=== PATIENT | male | born 1950 | race Caucasian/White ===

== ENCOUNTER → 2018-04-06 | Outpatient (CLI) | payer MEDICARE, OTHER ==
[~2018-04-06] MED LIST: CYCL10 PO; LOVA40; METF500 PO; Naprosyn375 MG PO; Ultram50 MG PO
== END ==
LOC: LAB 16:34 → LAB SHORT 16:34
DX: Z48.817 Encounter for surgical aftercare following surgery on the skin and subcutaneous tissue (principal); Z48.02 Encounter for removal of sutures; D04.21 Carcinoma in situ of skin of right ear and external auricular canal; L08.9 Local infection of the skin and subcutaneous tissue, unspecified
CPT/HCPCS: 87070; 87205

== ENCOUNTER 2018-06-15 11:44 | Emergency (ER) | payer MEDICARE, OTHER ==
[~2018-06-15] VITALS: Ht 167.6 cm; Wt 72.6 kg
[2018-06-15 12:01] LABS: BASOPHILS ABSOLUTE AUTO 0.06 K/mm3 (0.00-0.23); BASOPHILS PERCENT AUTO 1 % (0-2); EOSINOPHILS ABSOLUTE AUTO 0.18 K/mm3 (0.00-0.68); EOSINOPHILS PERCENT AUTO 2 % (0-6); Hemoglobin 14.5 g/dL (13.5-17.5); IMMATURE GRAN ABSOLUTE AUTO 0.07 K/mm3 (0.00-0.10); IMMATURE GRAN PERCENT AUTO 1 % (0-1); LYMPHOCYTES ABSOLUTE AUTO 1.91 K/mm3 (0.84-5.20); LYMPHOCYTES PERCENT AUTO 20 % (21-46); MONOCYTES ABSOLUTE AUTO 0.48 K/mm3 (0.16-1.47); MONOCYTES PERCENT AUTO 5 % (4-13); Mean Corpuscular Volume 88 fL (80-100); Mean Platelet Volume 10.4 fL (9.1-12.4); NEUTROPHILS ABSOLUTE AUTO 6.76 K/mm3 (1.96-9.15); NEUTROPHILS PERCENT AUTO 72 % (41-73); Platelet Count 267 K/mm3 (150-400); RDW Coefficient Variation 13.5 % (11.7-14.2); RDW Standard Deviation 43.8 fL (35.1-46.3); White Blood Cell Count 9.46 K/mm3 (4.00-11.30)
[2018-06-15 12:16] LABS: International Normalized Ratio 0.92; Prothrombin Time Results 9.5 Sec (9.7-11.5)
[2018-06-15 12:17] LABS: Alanine Aminotransfer (ALT/SGP 24 U/L (12-78); Albumin, Blood 3.6 g/dL (3.4-5.0); Albumin/Globulin Ratio 0.9 (0.8-1.8); Alk Phos 82 U/L (50-136); Anion Gap 7 mmol/L (6-16); Aspartate Aminotrans (AST/SGOT 21 U/L (12-37); Bilirubin, Total 0.5 mg/dL (0.1-1.0); Blood Urea Nitrogen 11 mg/dL (8-24); Bun/Creatinine Ratio 13.2 (12.0-20.0); CO2, Blood 27 mmol/L (21-32); Calcium, Blood 8.4 mg/dL (8.5-10.1); Chloride, Blood 102 mmol/L (98-108); Creatinine, Blood 0.83 mg/dL (0.60-1.20); Glomerular Filtration Rate >60 (60-); Glucose, Blood 375 mg/dL (70-99); Potassium, Blood 4.4 mmol/L (3.5-5.5); Sodium, Blood 136 mmol/L (136-145); Total Protein, Blood 7.6 g/dL (6.4-8.2)
[2018-06-15 12:18] LABS: Ethanol (Alcohol), Blood, Med <3 mg/dL
[2018-06-15 13:45] LABS: PCO2 Arterial 36.5 mmHg (35-45); PO2 Arterial 105 mmHg (80-100); pH Blood Arterial 7.34 (7.35-7.45)
[2018-06-15 14:54] LABS: U Amphetamine Screen Not Detected; U Barbituate Screen Not Detected; U Benzodiazapine Screen Not Detected; U Buprenorphine Screen Not Detected; U Cannabinoids Screen DETECTED; U Cocaine Screen Not Detected; U Methadone Screen Not Detected; U Methamphetamine Screen Not Detected; U Opiates Screen Not Detected; U Oxycodone Screen Not Detected; U Phencyclidine Screen Not Detected; U Propoxyphene Screen Not Detected
== END 2018-06-15 16:35 | disposition short-term general hospital (02) ==
LOC: ER 11:44
PROVIDERS: Emergency Medicine
DX: S22.21XA Fracture of manubrium, initial encounter for closed fracture (principal); G40.901 Epilepsy, unspecified, not intractable, with status epilepticus; I10 Essential (primary) hypertension; I95.9 Hypotension, unspecified; R00.1 Bradycardia, unspecified; V47.5XXA Car driver injured in collision with fixed or stationary object in traffic accident, initial encounter; Z79.84 Long term (current) use of oral hypoglycemic drugs; E11.40 Type 2 diabetes mellitus with diabetic neuropathy, unspecified
CPT/HCPCS: 31500; 31720; 36600; 51702; 70450; 71045; 71260; 72125; 74177; 80053; 82803; 83690; 85025; 85610; 85730; 93005; 93010; 94002; 96374; 96375; 99291-25; 99292; G0480; J0461; J1165; J2060; J2250; J3010; J7030; J7050; Q2009; Q9967

== ENCOUNTER → 2018-06-20 | Outpatient (CLI) | payer MEDICARE, OTHER ==
[~2018-06-20] MED LIST changes: +LEVE500 PO
== END ==
LOC: LAB EV 16:26 → LAB SHORT 16:26
DX: E11.9 Type 2 diabetes mellitus without complications (principal)
CPT/HCPCS: 83036

== ENCOUNTER 2018-06-26 18:07 | Emergency (ER) | payer MEDICARE, OTHER ==
[~2018-06-26] VITALS: Ht 170.2 cm; Wt 70.3 kg
[~2018-06-26 18:07] MED LIST changes: -LEVE500 PO
[2018-06-26 18:46] LABS: BASOPHILS ABSOLUTE AUTO 0.09 K/mm3 (0.00-0.23); BASOPHILS PERCENT AUTO 1 % (0-2); EOSINOPHILS ABSOLUTE AUTO 0.19 K/mm3 (0.00-0.68); EOSINOPHILS PERCENT AUTO 2 % (0-6); Hemoglobin 13.4 g/dL (13.5-17.5); IMMATURE GRAN ABSOLUTE AUTO 0.06 K/mm3 (0.00-0.10); IMMATURE GRAN PERCENT AUTO 1 % (0-1); LYMPHOCYTES ABSOLUTE AUTO 2.11 K/mm3 (0.84-5.20); LYMPHOCYTES PERCENT AUTO 19 % (21-46); MONOCYTES ABSOLUTE AUTO 0.77 K/mm3 (0.16-1.47); MONOCYTES PERCENT AUTO 7 % (4-13); Mean Corpuscular HGB Conc 33.5 g/dL (31.5-36.5); Mean Corpuscular Volume 87 fL (80-100); Mean Platelet Volume 9.9 fL (9.1-12.4); NEUTROPHILS ABSOLUTE AUTO 7.68 K/mm3 (1.96-9.15); NEUTROPHILS PERCENT AUTO 70 % (41-73); Platelet Count 389 K/mm3 (150-400); RDW Coefficient Variation 13.2 % (11.7-14.2); RDW Standard Deviation 41.8 fL (35.1-46.3); Red Blood Cell Count 4.62 M/mm3 (4.30-5.90)
[2018-06-26] MEDS ORDERED: LEVE500 PO (18:49)
[2018-06-26 19:14] LABS: Alanine Aminotransfer (ALT/SGP 24 U/L (12-78); Albumin, Blood 3.6 g/dL (3.4-5.0); Albumin/Globulin Ratio 0.9 (0.8-1.8); Alk Phos 95 U/L (50-136); Anion Gap 6 mmol/L (6-16); Aspartate Aminotrans (AST/SGOT 21 U/L (12-37); Bilirubin, Total 0.3 mg/dL (0.1-1.0); Blood Urea Nitrogen 19 mg/dL (8-24); Bun/Creatinine Ratio 21.8 (12.0-20.0); CO2, Blood 26 mmol/L (21-32); Calcium, Blood 8.5 mg/dL (8.5-10.1); Chloride, Blood 99 mmol/L (98-108); Creatinine, Blood 0.87 mg/dL (0.60-1.20); Globulin, Blood 4.1 g/dL (2.2-4.0); Glomerular Filtration Rate >60 (60-); Glucose, Blood 203 mg/dL (70-99); Potassium, Blood 5.9 mmol/L (3.5-5.5); Sodium, Blood 131 mmol/L (136-145); Total Protein, Blood 7.7 g/dL (6.4-8.2)
[2018-06-26 20:14] LABS: Source, Urine Clean Catch
[2018-06-26 20:17] LABS: Bilirubin, Urine Neg (Neg); Blood, Urine Neg (Neg); Glucose Qualitative, Urine Neg (Neg); Ketones, Urine Neg (Neg); Leukocyte Esterase, Urine Neg (Neg); Nitrite, Urine Neg (Neg); Protein, Urine 2+ (Neg); Urobilinogen, Urine NORM (Normal)
[2018-06-26 20:22] LABS: Appearance, Urine Clear (Clear); Color, Urine Yellow (P-Yellow); Red Blood Cells, Urine 0-2 /hpf (0-2); White Blood Cells, Urine 0-2 /hpf (0-5)
[2018-06-26 20:23] LABS: Bacteria Few /hpf; Squamous Epithelial Cells Rare /hpf (Few)
[2018-06-26 20:27] LABS: U Amphetamine Screen Not Detected; U Barbituate Screen Not Detected; U Benzodiazapine Screen Not Detected; U Buprenorphine Screen Not Detected; U Cannabinoids Screen DETECTED; U Cocaine Screen Not Detected; U Methadone Screen Not Detected; U Methamphetamine Screen Not Detected; U Opiates Screen Not Detected; U Oxycodone Screen Not Detected; U Phencyclidine Screen Not Detected; U Propoxyphene Screen Not Detected
[2018-06-26 20:30] LABS: Chloride (POC) 96 mmol/L (98-108); Creatinine (POC) 0.8 mg/dL (0.8-1.3); Glucose (ISTAT POC) 224 mg/dL (70-99); Hemoglobin (POC) 13.6 g/dL (13.5-17.5); Potassium (POC) 5.3 mmol/L (3.5-5.5); Sodium (POC) 134 mmol/L (135-148); Total CO2 (POC) 27 mmol/L (21-32)
== END 2018-06-26 21:06 | disposition home or self-care (01) ==
LOC: ER 18:07
PROVIDERS: Emergency Medicine
DX: F07.81 Postconcussional syndrome (principal); S22.21XA Fracture of manubrium, initial encounter for closed fracture; G40.901 Epilepsy, unspecified, not intractable, with status epilepticus; Z79.84 Long term (current) use of oral hypoglycemic drugs; E11.40 Type 2 diabetes mellitus with diabetic neuropathy, unspecified; V49.9XXA Car occupant (driver) (passenger) injured in unspecified traffic accident, initial encounter
CPT/HCPCS: 36415; 70450; 71046; 80047; 80053; 81001; 82947; 85014; 85025; 93005; 93010; 96374; 96375; 99285-25; G0480; J1885; J2310; J2405

== ENCOUNTER 2018-08-31 17:47 | Inpatient (IN) | payer MEDICARE, OTHER ==
[~2018-08-31] VITALS: Ht 177.8 cm; Wt 73.5 kg
[~2018-08-31 17:47] MED LIST changes: +LEVE500 PO; -METF500 PO; +METFORMIN HCL500 MG PO
[2018-08-31 18:29] LABS: BASOPHILS ABSOLUTE AUTO 0.06 K/mm3 (0.00-0.23); BASOPHILS PERCENT AUTO 1 % (0-2); EOSINOPHILS ABSOLUTE AUTO 0.01 K/mm3 (0.00-0.68); EOSINOPHILS PERCENT AUTO 0 % (0-6); Hemoglobin 13.8 g/dL (13.5-17.5); IMMATURE GRAN ABSOLUTE AUTO 0.04 K/mm3 (0.00-0.10); IMMATURE GRAN PERCENT AUTO 0 % (0-1); LYMPHOCYTES ABSOLUTE AUTO 1.32 K/mm3 (0.84-5.20); LYMPHOCYTES PERCENT AUTO 11 % (21-46); MONOCYTES PERCENT AUTO 6 % (4-13); Mean Corpuscular HGB Conc 32.9 g/dL (31.5-36.5); Mean Corpuscular Volume 88 fL (80-100); Mean Platelet Volume 10.2 fL (9.1-12.4); NEUTROPHILS ABSOLUTE AUTO 10.41 K/mm3 (1.96-9.15); NEUTROPHILS PERCENT AUTO 83 % (41-73); Platelet Count 281 K/mm3 (150-400); RDW Standard Deviation 45.3 fL (35.1-46.3); Red Blood Cell Count 4.76 M/mm3 (4.30-5.90); White Blood Cell Count 12.54 K/mm3 (4.00-11.30)
[2018-08-31 18:47] LABS: Alanine Aminotransfer (ALT/SGP 13 U/L (12-78); Albumin, Blood 3.3 g/dL (3.4-5.0); Albumin/Globulin Ratio 0.9 (0.8-1.8); Alk Phos 96 U/L (50-136); Anion Gap 8 mmol/L (6-16); Aspartate Aminotrans (AST/SGOT 12 U/L (12-37); Bilirubin, Total 0.4 mg/dL (0.1-1.0); Blood Urea Nitrogen 15 mg/dL (8-24); Bun/Creatinine Ratio 18.2 (12.0-20.0); CO2, Blood 27 mmol/L (21-32); Calcium, Blood 8.7 mg/dL (8.5-10.1); Chloride, Blood 103 mmol/L (98-108); Creatinine, Blood 0.83 mg/dL (0.60-1.20); Globulin, Blood 3.7 g/dL (2.2-4.0); Glomerular Filtration Rate >60 (60-); Glucose, Blood 298 mg/dL (70-99); Potassium, Blood 3.9 mmol/L (3.5-5.5); Sodium, Blood 138 mmol/L (136-145)
[2018-08-31 19:14] LABS: Ethanol (Alcohol), Blood, Med <3 mg/dL; Magnesium, Blood 1.9 mg/dL (1.6-2.4)
[2018-08-31 20:53] LABS: Source, Urine Catheter
[2018-08-31 20:56] LABS: Bilirubin, Urine Neg (Neg); Blood, Urine 3+ (Neg); Glucose Qualitative, Urine 4+ (Neg); Ketones, Urine 2+ (Neg); Leukocyte Esterase, Urine Neg (Neg); Nitrite, Urine Neg (Neg); Protein, Urine 3+ (Neg); Urobilinogen, Urine NORM (Normal)
[2018-08-31 21:02] LABS: Appearance, Urine Clear (Clear); Color, Urine Yellow (P-Yellow)
[2018-08-31 21:05] LABS: Bacteria Not Seen /hpf; Mucus Light (0-Heavy); Squamous Epithelial Cells Rare /hpf (Few); White Blood Cells, Urine Rare /hpf (0-5)
[2018-08-31 21:06] LABS: U Amphetamine Screen Not Detected; U Barbituate Screen Not Detected; U Benzodiazapine Screen DETECTED; U Cocaine Screen Not Detected; U Methadone Screen Not Detected; U Methamphetamine Screen Not Detected; U Opiates Screen Not Detected
[2018-08-31 21:07] LABS: U Buprenorphine Screen Not Detected; U Cannabinoids Screen DETECTED; U Oxycodone Screen Not Detected; U Phencyclidine Screen Not Detected; U Propoxyphene Screen Not Detected
--- NOTE | 2018-09-01 02:23 | NUR ---
ASSUMED PT CARE AT 2200 PT ARRIVED ON UNIT VIA STRETCHER. VERY DROWSY, BUT ABLE TO OPEN EYES SPONTANEOUSLY, AND APPEARED TO BE ALERT AND ORIENTED TO PERSON, PLACE, TIME, SITUATION, WELL WAS FOLLOWING DIRECTIONS. SPEECH CLEAR, BUT GARBLED AT TIMES. UPON TRANSFERRING PT TO BED AND PLACING TELE LEADS AND BLOOD PRESSURE CUFF ON PT, HE BECAME VERY AGITATED AND STARTED PULLING HIS PANTS OFF, THE TELE LEADS OFF, WELL TAKING OFF THE BP CUFF. PT WAS ASKED NOT TO DO THIS SEVERAL TIMES AT WHICH POINT BILATERAL SOFT WRIST RESTRAINTS WERE APPLIED AT 2215; PT EDUCATED TO WHY RESTRAINTS WERE BEING APPLIED AND PT ACKNOWLEDGED/VERBALIZED UNDERSTANDING. PT APPEARED TO STILL BE POST ICTAL PHASE FROM LAST SEIZURE IN ED; VERY DROWSY, HOWEVER, DENIED ANY HEADACHE, VISION CHANGES, WELL NAUSEA/VOMITING. PT STATED HE WAS VERY THIRSTY, BUT UNDERSTOOD WHY HE WASN'T ALLOWED TO HAVE ANYTHING TO DRINK. LUNG SOUNDS WERE CLEAR T/O WITH NORMAL RESPIRATORY EFFORT. HR GOT LOW 46; FIRST DEGREE AV HEART BLOCK NOTED ON ADMIT RHYTHM STRIP. FAMIY AT BEDSIDE BRIEFLY TO ANSWER HEALTH HISTORY QUESTIONS AND SIGN PAPERWORK. PHONE NUMBERS LEFT PRIOR TO FAMILY LEAVING BEDSIDE. PT WAS REMOVED FROM BILATERAL SOFT WRIST RESTRAINTS AT 0100 D/T PT NOT BEING AGITATED AND ABLE TO COMMUNICATE THAT HE WOULD NOT REMOVE MEDICAL EQUIPMENT. CALL LIGHT IN REACH; PT APPEARS COMFORTABLE AT THIS TIME.
[2018-09-01 03:41] LABS: Hematocrit 38.9 % (37.0-53.0); Hemoglobin 12.7 g/dL (13.5-17.5); Mean Corpuscular HGB 28.9 pg (26.0-34.0); Mean Corpuscular HGB Conc 32.6 g/dL (31.5-36.5); Mean Corpuscular Volume 89 fL (80-100); Mean Platelet Volume 9.8 fL (9.1-12.4); Platelet Count 236 K/mm3 (150-400); RDW Standard Deviation 45.3 fL (35.1-46.3); Red Blood Cell Count 4.39 M/mm3 (4.30-5.90); White Blood Cell Count 12.02 K/mm3 (4.00-11.30)
[2018-09-01 04:00] LABS: Alanine Aminotransfer (ALT/SGP 12 U/L (12-78); Albumin/Globulin Ratio 0.9 (0.8-1.8); Alk Phos 84 U/L (50-136); Anion Gap 6 mmol/L (6-16); Aspartate Aminotrans (AST/SGOT 12 U/L (12-37); Bilirubin, Total 0.5 mg/dL (0.1-1.0); Blood Urea Nitrogen 14 mg/dL (8-24); Bun/Creatinine Ratio 16.2 (12.0-20.0); CO2, Blood 27 mmol/L (21-32); Calcium, Blood 8.1 mg/dL (8.5-10.1); Chloride, Blood 106 mmol/L (98-108); Creatinine, Blood 0.87 mg/dL (0.60-1.20); Globulin, Blood 3.3 g/dL (2.2-4.0); Glomerular Filtration Rate >60 (60-); Glucose, Blood 185 mg/dL (70-99); Potassium, Blood 3.7 mmol/L (3.5-5.5); Sodium, Blood 139 mmol/L (136-145); Total Protein, Blood 6.3 g/dL (6.4-8.2)
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
--- NOTE | 2018-09-01 07:30 | NUR ---
ASSUMED CARE OF PATIENT; SEE ASSESSMENT CHARTING FOR DETAILS. PATIENT REMAINS NON-RESPONSIVE TO PAINFUL STIMULI; PROPOFOL DRIP HAS BEEN OFF ALMOST 24 HOURS BUT STILL NO NOTED RESPONSE; PUPILS EQUAL BUT SLUGGISH TO REACT. VENT SETTINGS: A/C 16, TV 350, PEEP 12 AND FIO2 100%. BILAT. WRIST RESTRAINTS REMAIN IN PLACE IN CASE OF SUDDEN RESPONSIVENESS. OGT INFUSING WITH PIVOT 1.5 AT 10ML/HR (GOAL 20ML/HR). RESIDUAL 140ML OF BROWNISH/GRAINGY RETURN WITH SOME GREEN COLORING. RADFORD CATH. DRAINING SCANT, LT. YELLOW URINE. MONITOR SHOWS ATRIAL FIB WITH RATE 1-TEENS TO 120'S; BP STABLE AND AFEBRILE. SCD'S IN PLACE TO RLE. LLE ELEVATED ON PILLOW; SOFT SPLINT TO CALF (TIB/FIB FX.). 1 AMP NAHCO3 GIVEN IVP BY NOC NURSE JUST PRIOR TO TRANSFER OF CARE; THIS RN STARTED CONT. INFUSION OF NA HCO3 AT 7ML/HR. RN ANAHY SPECIMEN, FOR ABG, FROM ART LINE WITHOUT DIFFICULTY; GOOD WAVE FORM AND ZERO BALANCES EASILY. CENTRAL LINE TO RIJ; DRESSING D/I.
--- NOTE | 2018-09-01 07:30 | NUR ---
ASSUMED CARE OF PATIENT; SEE ASSESSMENT CHARTING FOR DETAILS. PATIENT SLEEPING BUT AROUSES TO VERBAL STIMULI; DRIFTS OFF TO SLEEP WHEN NOT DISTURBED. ORIENTED TO PLACE, SELF, SITUATION, YEAR AND MONTH. LUNGS CLEAR; OXYGEN AT 2L/MIN VIA NC; BIOX MID 90'S TO HIGH 90'S; PATIENT SNORES AND BIOX DROPS IF O2 OFF. IVF OF NS INFUSING AT 75ML/HR. PATIENT THIRSTY BUT CURRENTLY NPO STATUS; MOUTH SWABBED. FAMILY IN/OUT VERY SUPPORTIVE. SEIZURE PADS ON SIDE RAILS; FOLLOWING SEIZURE PRECAUTIONS; NO S/SX OF SEIZURE ACTIVITY AT THIS TIME.
--- NOTE | 2018-09-01 07:45 | NUR ---
DR. ORTEGA HERE; SEE ORDERS. PATIENT MAY HAVE ADA ETTA.
--- NOTE | 2018-09-01 09:30 | NUR ---
BREAKFAST AT BEDSIDE; APPETITE POOR BUT SWALLOWING OKAY; TAKE SIPS OF WATER; NO GI UPSET. VOIDING ABOUT 125ML IN URINAL; URINE RAJI IN COLOR.
--- NOTE | 2018-09-01 12:00 | NUR ---
CBG READING 162; NO INSULIN COVERAGE INDICATED. REFUSED LUNCH; WANTING TO RETURN TO SLEEP; REPOSITIONS SELF IN BED.
--- NOTE | 2018-09-01 17:30 | NUR ---
TC TO HOSPITALIST (DR. ORTEGA); RECEIVED ORDER TO CHANGE PATIENT TO MED. FLOOR STATUS WITHOUT TELEMETRY. IVFS' TO CONTINUE ORDERED.
--- NOTE | 2018-09-01 18:30 | NUR ---
PATIENT TO TRANSFER TO MEDICAL FLOOR, ROOM 324; RN WILL CALL REPORT TO [employer]. FLOOR NURSE AND ICU NIGHTSHIFT WILL TRANSFER PATIENT.
--- NOTE | 2018-09-01 19:05 | NUR ---
REPORT TO YARA HAWLEY; PATIENT TO TRANSFER TO [facility] FLOOR ROOM 324.
--- NOTE | 2018-09-01 19:21 | NUR ---
TRANSFERRED TO MEDICAL FLOOR, ROOM 324, VIA BED; ACCOMPANIED BY SENIOR PRODUCT DEVELOPMENT MANAGER. BELONGINGS, MEDS AND CHART WITH PATIENT; EEG ORDERED BUT NO SPECIFICS GIVEN ON DATE, ETC FROM HAND THERAPIST.
--- NOTE | 2018-09-01 19:30 | NUR ---
Transfer from ICU. Pt transferred from ICU. Pt settled in room 324 and assessment completed. Seizure precautions put on bed. Pt states he has not had any seizures since he came to icu. No c/o discomfort. See nursing assessment. VSS.
--- NOTE | 2018-09-02 03:30 | NUR ---
sHIFT SUMMARY: pT SLEPT WELL DURING THE NIGHT. No c/o discomfort and no seizures noted. VSS. blood sugar last pm was 129- no coverage needed. pt alert, oriented and appropriate.
[2018-09-02] MEDS ORDERED: LISI5 PO (10:50)
[2018-09-02] MEDS ORDERED: LEVE500 PO (10:50)
--- NOTE | 2018-09-02 13:01 | NUR ---
PT WAS DISCHARGED AT 12:30. HE WAS TRANSPORTED HOME BY HIS ROOMMATE BY CAR.
== END 2018-09-02 12:31 | disposition home or self-care (01) | DRG 101 ==
LOC: ER 17:47 → ICUW 20:41 → MEDS 09-01 19:20 → ENPENDDIS 09-02 10:00 → MEDS 09-02 12:31
PROVIDERS: Emergency Medicine; Nurse Practitioner Acute Care; ADMIT Hospitalist
DX: G40.909 Epilepsy, unspecified, not intractable, without status epilepticus (principal); E11.65 Type 2 diabetes mellitus with hyperglycemia; R00.1 Bradycardia, unspecified; Z91.14 Patient's other noncompliance with medication regimen
CPT/HCPCS: 36415; 70450; 71045; 80053; 81001; 82140; 82947; 83605; 83735; 84146; 84484; 85025; 85027; 96365; 96375; 96376; 99285-25; G0480; J1953; J2060; J2405; J7030

== ENCOUNTER 2018-11-19 19:08 | Emergency (ER) | payer MEDICARE, OTHER ==
[~2018-11-19] VITALS: Ht 170.2 cm; Wt 72.6 kg
[~2018-11-19 19:08] MED LIST changes: +LISI5 PO
[2018-11-19 20:06] LABS: BASOPHILS ABSOLUTE AUTO 0.07 K/mm3 (0.00-0.23); BASOPHILS PERCENT AUTO 1 % (0-2); EOSINOPHILS ABSOLUTE AUTO 0.32 K/mm3 (0.00-0.68); EOSINOPHILS PERCENT AUTO 3 % (0-6); Hematocrit 41.7 % (37.0-53.0); Hemoglobin 13.9 g/dL (13.5-17.5); IMMATURE GRAN ABSOLUTE AUTO 0.04 K/mm3 (0.00-0.10); IMMATURE GRAN PERCENT AUTO 0 % (0-1); LYMPHOCYTES ABSOLUTE AUTO 1.92 K/mm3 (0.84-5.20); LYMPHOCYTES PERCENT AUTO 18 % (21-46); MONOCYTES ABSOLUTE AUTO 1.02 K/mm3 (0.16-1.47); MONOCYTES PERCENT AUTO 10 % (4-13); Mean Corpuscular HGB 28.9 pg (26.0-34.0); Mean Corpuscular HGB Conc 33.3 g/dL (31.5-36.5); Mean Corpuscular Volume 87 fL (80-100); Mean Platelet Volume 9.8 fL (9.1-12.4); NEUTROPHILS ABSOLUTE AUTO 7.27 K/mm3 (1.96-9.15); NEUTROPHILS PERCENT AUTO 68 % (41-73); Platelet Count 290 K/mm3 (150-400); RDW Coefficient Variation 13.6 % (11.7-14.2); RDW Standard Deviation 43.2 fL (35.1-46.3); Red Blood Cell Count 4.81 M/mm3 (4.30-5.90); White Blood Cell Count 10.64 K/mm3 (4.00-11.30)
[2018-11-19] MEDS ORDERED: CEPH500 PO (21:05)
[2018-11-19] MEDS ORDERED: Bactrim Ds Tab1 EACH PO (21:06)
== END 2018-11-19 21:30 | disposition home or self-care (01) ==
LOC: ER 19:08
PROVIDERS: Physician Assistant
DX: L03.031 Cellulitis of right toe (principal); L03.115 Cellulitis of right lower limb; E11.40 Type 2 diabetes mellitus with diabetic neuropathy, unspecified; M79.604 Pain in right leg
CPT/HCPCS: 36415; 85025; 93971; 99283-25

== ENCOUNTER 2019-02-15 13:38 | Observation (INO) | payer MEDICARE, OTHER ==
[~2019-02-15] VITALS: Ht 170.2 cm; Wt 70.3 kg
[~2019-02-15 13:38] MED LIST changes: +Bactrim Ds Tab1 EACH PO; +CEPH500 PO
[2019-02-15 13:50] LABS: Calcium, Ionized (POC) 1.18 mmol/L (1.10-1.46); Chloride (POC) 101 mmol/L (98-108); Creatinine (POC) 1.1 mg/dL (0.8-1.3); Glucose (ISTAT POC) 243 mg/dL (70-99); Hemoglobin (POC) 13.9 g/dL (13.5-17.5); Potassium (POC) 4.2 mmol/L (3.5-5.5); Sodium (POC) 136 mmol/L (135-148); Total CO2 (POC) 24 mmol/L (21-32)
[2019-02-15 13:52] LABS: BASOPHILS ABSOLUTE AUTO 0.07 K/mm3 (0.00-0.23); BASOPHILS PERCENT AUTO 1 % (0-2); EOSINOPHILS ABSOLUTE AUTO 0.28 K/mm3 (0.00-0.68); EOSINOPHILS PERCENT AUTO 3 % (0-6); Hematocrit 40.8 % (37.0-53.0); Hemoglobin 13.9 g/dL (13.5-17.5); IMMATURE GRAN ABSOLUTE AUTO 0.02 K/mm3 (0.00-0.10); IMMATURE GRAN PERCENT AUTO 0 % (0-1); LYMPHOCYTES ABSOLUTE AUTO 3.02 K/mm3 (0.84-5.20); LYMPHOCYTES PERCENT AUTO 36 % (21-46); MONOCYTES ABSOLUTE AUTO 0.66 K/mm3 (0.16-1.47); MONOCYTES PERCENT AUTO 8 % (4-13); Mean Corpuscular HGB 28.5 pg (26.0-34.0); Mean Corpuscular HGB Conc 34.1 g/dL (31.5-36.5); Mean Corpuscular Volume 84 fL (80-100); Mean Platelet Volume 9.7 fL (9.1-12.4); NEUTROPHILS ABSOLUTE AUTO 4.34 K/mm3 (1.96-9.15); NEUTROPHILS PERCENT AUTO 52 % (41-73); Platelet Count 289 K/mm3 (150-400); RDW Coefficient Variation 13.7 % (11.7-14.2); RDW Standard Deviation 42.1 fL (35.1-46.3); Red Blood Cell Count 4.87 M/mm3 (4.30-5.90); White Blood Cell Count 8.39 K/mm3 (4.00-11.30)
[2019-02-15 14:10] LABS: International Normalized Ratio 0.88; Prothrombin Time Results 9.4 Sec (9.7-11.5)
[2019-02-15 14:38] LABS: Alanine Aminotransfer (ALT/SGP 13 U/L (12-78); Albumin, Blood 3.6 g/dL (3.4-5.0); Albumin/Globulin Ratio 0.9 (0.8-1.8); Alk Phos 84 U/L (50-136); Anion Gap 6 mmol/L (6-16); Aspartate Aminotrans (AST/SGOT 17 U/L (12-37); Bilirubin, Total 0.4 mg/dL (0.1-1.0); Blood Urea Nitrogen 17 mg/dL (8-24); Bun/Creatinine Ratio 17.5 (12.0-20.0); CO2, Blood 25 mmol/L (21-32); Calcium, Blood 9.1 mg/dL (8.5-10.1); Chloride, Blood 103 mmol/L (98-108); Creatinine, Blood 0.97 mg/dL (0.60-1.20); Globulin, Blood 3.8 g/dL (2.2-4.0); Glomerular Filtration Rate >60 (60-); Glucose, Blood 242 mg/dL (70-99); Potassium, Blood 4.2 mmol/L (3.5-5.5); Sodium, Blood 134 mmol/L (136-145); Total Protein, Blood 7.4 g/dL (6.4-8.2)
[2019-02-15 14:54] LABS: Source, Urine Clean Catch
[2019-02-15 14:56] LABS: Bilirubin, Urine Neg (Neg); Blood, Urine 1+ (Neg); Glucose Qualitative, Urine 2+ (Neg); Ketones, Urine Neg (Neg); Leukocyte Esterase, Urine Neg (Neg); Nitrite, Urine Neg (Neg); Protein, Urine 1+ (Neg); Urobilinogen, Urine NORM (Normal)
[2019-02-15 15:03] LABS: Appearance, Urine Clear (Clear); Color, Urine Yellow (P-Yellow)
[2019-02-15 15:04] LABS: Bacteria Few /hpf; Squamous Epithelial Cells Not Seen /hpf (Few); White Blood Cells, Urine 0-2 /hpf (0-5)
[2019-02-15 15:24] LABS: U Amphetamine Screen Not Detected; U Barbituate Screen Not Detected; U Benzodiazapine Screen Not Detected; U Buprenorphine Screen Not Detected; U Cannabinoids Screen DETECTED; U Cocaine Screen Not Detected; U Methadone Screen Not Detected; U Methamphetamine Screen Not Detected; U Opiates Screen Not Detected; U Oxycodone Screen Not Detected; U Phencyclidine Screen Not Detected; U Propoxyphene Screen Not Detected
[2019-02-15] MEDS ORDERED: LEVE500 PO (16:19)
[2019-02-15] MEDS ORDERED: METF500C PO (16:19)
--- NOTE | 2019-02-15 18:50 | NUR ---
ADMIT TO UNIT PT ARRIVED TO UNIT AT APPROX 1814, TRANSFERED TO UNIT BED WITH MINIMAL ASSIST STAND AND PIVOT. GAIT ON TRANSFER APPEARED GOOD. PT STATES NO PAIN AT THIS TIME. RESTING IN BED WITH LIGHTS OFF. USED URINAL ONCE IN BED. ABRASION TO RIGHT FOREHEAD, RIGHT ELBOW X2. PATIENT IS ALERT AND ORIENTED, ABLE TO TELL TIME, DATE, LOCATION, AND SELF, UNABLE TO STATE WHAT HAPPENED. "DOES NOT REMEMBER". EYES WERE EQUAL AND RESPONSIVE. PATIENT DENIES NAUSEA AND VOMITTING AT THIS TIME. WILL CONTINUE TO MONITOR AND HAND OFF TO ONCOMING SHIFT.
[2019-02-16 05:33] LABS: BASOPHILS ABSOLUTE AUTO 0.06 K/mm3 (0.00-0.23); BASOPHILS PERCENT AUTO 0 % (0-2); EOSINOPHILS ABSOLUTE AUTO 0.17 K/mm3 (0.00-0.68); EOSINOPHILS PERCENT AUTO 1 % (0-6); Hematocrit 42.5 % (37.0-53.0); Hemoglobin 14.4 g/dL (13.5-17.5); IMMATURE GRAN ABSOLUTE AUTO 0.06 K/mm3 (0.00-0.10); IMMATURE GRAN PERCENT AUTO 0 % (0-1); LYMPHOCYTES ABSOLUTE AUTO 1.93 K/mm3 (0.84-5.20); LYMPHOCYTES PERCENT AUTO 14 % (21-46); MONOCYTES ABSOLUTE AUTO 1.05 K/mm3 (0.16-1.47); MONOCYTES PERCENT AUTO 8 % (4-13); Mean Corpuscular HGB 28.3 pg (26.0-34.0); Mean Corpuscular HGB Conc 33.9 g/dL (31.5-36.5); Mean Corpuscular Volume 84 fL (80-100); Mean Platelet Volume 10.2 fL (9.1-12.4); NEUTROPHILS ABSOLUTE AUTO 10.73 K/mm3 (1.96-9.15); NEUTROPHILS PERCENT AUTO 77 % (41-73); Platelet Count 286 K/mm3 (150-400); RDW Coefficient Variation 13.7 % (11.7-14.2); RDW Standard Deviation 41.9 fL (35.1-46.3); Red Blood Cell Count 5.08 M/mm3 (4.30-5.90)
--- NOTE | 2019-02-16 05:40 | NUR ---
LYING IN SEMI FOWLERS WITH EYES OPEN WHILE WATCHING TV. STATES THAT HE HAS NOT SLEPT WELL AND HAS BEEN UP AND DWN ALL NIGHT GOING TO THE BATHROOM. WHEN ASKED IF THIS IS NORMAL, HE STATES THAT IT IS. NO CONFUSION NOTED THROUGHOUT SHIFT. DENIES NEED FOR PAIN MEDS AT THIS TIME, STATES THAT PAIN IS MANAGED WITH REST. VERBALIZES UNDERSTANDING TO CALL IF NEED FOR PAIN MEDS ARISE. DENEIS FURTHER NEEDS AT THIS TIME. SAFETY MEASURES IN PLACE. WILL CONTINUE TO MONITOR.
[2019-02-16 05:55] LABS: Alanine Aminotransfer (ALT/SGP 12 U/L (12-78); Albumin, Blood 3.5 g/dL (3.4-5.0); Albumin/Globulin Ratio 0.9 (0.8-1.8); Alk Phos 86 U/L (50-136); Anion Gap 8 mmol/L (6-16); Aspartate Aminotrans (AST/SGOT 12 U/L (12-37); Bilirubin, Total 0.7 mg/dL (0.1-1.0); Blood Urea Nitrogen 13 mg/dL (8-24); Bun/Creatinine Ratio 13.3 (12.0-20.0); CO2, Blood 25 mmol/L (21-32); Calcium, Blood 8.8 mg/dL (8.5-10.1); Chloride, Blood 104 mmol/L (98-108); Creatinine, Blood 0.98 mg/dL (0.60-1.20); Globulin, Blood 3.8 g/dL (2.2-4.0); Glomerular Filtration Rate >60 (60-); Glucose, Blood 204 mg/dL (70-99); Potassium, Blood 4.1 mmol/L (3.5-5.5); Sodium, Blood 137 mmol/L (136-145); Total Protein, Blood 7.3 g/dL (6.4-8.2)
--- NOTE | 2019-02-16 11:21 | NUR ---
DR. SMITH IN TO SEE PT AT APPROX 9651
--- NOTE | 2019-02-16 12:24 | NUR ---
DISCHARGE SUMMARY PT DISCHARGED HOME WITH FRIEND AT 1200 TODAY BY INDEPENDENT AMBULATION- REFUSED WHEELCHAIR. DISCHARGE TEACHING AND PERSONAL BELONGINGS GIVEN TO PT. REFUSED CBG AND INSULIN CONVERAGE PRIOR TO D/C. IV D/C WITH CATH INTACT.
== END 2019-02-16 12:10 | disposition home or self-care (01) ==
LOC: ER 13:38 → SURS 13:39
PROVIDERS: Emergency Medicine; Internal Medicine; ADMIT Surgery
DX: S06.0X1A Concussion with loss of consciousness of 30 minutes or less, initial encounter (principal); M25.519 Pain in unspecified shoulder; Z23 Encounter for immunization; G40.909 Epilepsy, unspecified, not intractable, without status epilepticus; E11.9 Type 2 diabetes mellitus without complications; Z79.899 Other long term (current) drug therapy; Z79.84 Long term (current) use of oral hypoglycemic drugs; V23.4XXA Motorcycle driver injured in collision with car, pick-up truck or van in traffic accident, initial encounter
CPT/HCPCS: 12011; 36415; 70450; 71045; 71260; 72125; 72170; 74177; 80047; 80053; 81001; 82947; 83605; 83690; 85014; 85025; 85610; 85730; 86850; 86900; 86901; 90471; 90714; 96365-59; 96375-59; 99285-25; A9270; G0378; G0480; J1815; J1953; J2405; J3010; Q9967

== ENCOUNTER 2019-06-05 13:40 | Emergency (ER) | payer OTHER, MEDICARE ==
[~2019-06-05] VITALS: Ht 170.2 cm; Wt 74.8 kg
[~2019-06-05 13:40] MED LIST changes: +METF500C PO
[2019-06-05] MEDS ORDERED: LEVE500 PO (15:01)
== END 2019-06-05 15:13 | disposition home or self-care (01) ==
LOC: ER 13:40
DX: S09.90XA Unspecified injury of head, initial encounter (principal); E11.40 Type 2 diabetes mellitus with diabetic neuropathy, unspecified; G40.909 Epilepsy, unspecified, not intractable, without status epilepticus; Z79.899 Other long term (current) drug therapy; V29.49XA Motorcycle driver injured in collision with other motor vehicles in traffic accident, initial encounter
CPT/HCPCS: 70450; 82947; 99284-25

== ENCOUNTER 2020-07-22 11:39 | Inpatient (IN) | payer MEDICARE, OTHER ==
[~2020-07-22] VITALS: Ht 172.7 cm; Wt 75.1 kg
[2020-07-22 12:10] LABS: Calcium, Ionized (POC) 1.09 mmol/L (1.10-1.46); Chloride (POC) 106 mmol/L (98-108); Creatinine (POC) 1.2 mg/dL (0.8-1.3); Glucose (ISTAT POC) 278 mg/dL (70-99); Potassium (POC) 3.7 mmol/L (3.5-5.5); Sodium (POC) 139 mmol/L (135-148); Total CO2 (POC) 21 mmol/L (21-32)
[2020-07-22 12:13] LABS: BASOPHILS ABSOLUTE AUTO 0.11 K/mm3 (0.00-0.23); BASOPHILS PERCENT AUTO 1 % (0-2); EOSINOPHILS ABSOLUTE AUTO 0.34 K/mm3 (0.00-0.68); EOSINOPHILS PERCENT AUTO 2 % (0-6); Hematocrit 47.3 % (37.0-53.0); Hemoglobin 15.3 g/dL (13.5-17.5); IMMATURE GRAN ABSOLUTE AUTO 0.09 K/mm3 (0.00-0.10); IMMATURE GRAN PERCENT AUTO 1 % (0-1); LYMPHOCYTES ABSOLUTE AUTO 6.12 K/mm3 (0.84-5.20); LYMPHOCYTES PERCENT AUTO 41 % (21-46); MONOCYTES ABSOLUTE AUTO 0.81 K/mm3 (0.16-1.47); MONOCYTES PERCENT AUTO 5 % (4-13); Mean Corpuscular HGB 28.4 pg (26.0-34.0); Mean Corpuscular HGB Conc 32.3 g/dL (31.5-36.5); Mean Corpuscular Volume 88 fL (80-100); Mean Platelet Volume 10.1 fL (9.1-12.4); NEUTROPHILS ABSOLUTE AUTO 7.56 K/mm3 (1.96-9.15); NEUTROPHILS PERCENT AUTO 50 % (41-73); Platelet Count 302 K/mm3 (150-400); RDW Coefficient Variation 13.8 % (11.7-14.2); RDW Standard Deviation 44.3 fL (35.1-46.3); Red Blood Cell Count 5.38 M/mm3 (4.30-5.90); White Blood Cell Count 15.03 K/mm3 (4.00-11.30)
[2020-07-22 12:27] LABS: Alanine Aminotransfer (ALT/SGP 47 U/L (12-78); Albumin, Blood 3.3 g/dL (3.4-5.0); Albumin/Globulin Ratio 0.9 (0.8-1.8); Alk Phos 112 U/L (50-136); Anion Gap 14 mmol/L (6-16); Aspartate Aminotrans (AST/SGOT 62 U/L (12-37); Bilirubin, Total 0.4 mg/dL (0.1-1.0); Blood Urea Nitrogen 20 mg/dL (8-24); Bun/Creatinine Ratio 18.2 (12.0-20.0); CO2, Blood 18 mmol/L (21-32); CPK Creatine Kinase 96 U/L (39-308); Calcium, Blood 8.4 mg/dL (8.5-10.1); Chloride, Blood 107 mmol/L (98-108); Creatine Kinase MB 3.7 ng/mL (0.0-3.6); Creatine Kinase MB Index 3.9 (0.0-4.0); D-Dimer, Quantitative 5.68 mg/L FEU (0.00-0.52); Globulin, Blood 3.7 g/dL (2.2-4.0); Glomerular Filtration Rate >60 (60-); Glucose, Blood 268 mg/dL (70-99); International Normalized Ratio 0.9; Potassium, Blood 3.7 mmol/L (3.5-5.5); Prothrombin Time Results 9.7 Sec (9.7-11.5); Sodium, Blood 139 mmol/L (136-145); Troponin I 0.267 ng/mL (0.000-0.040)
[2020-07-22] MEDS ORDERED: LISI5 PO (12:40)
[2020-07-22] MEDS ORDERED: GLIP2.5ER PO (12:41)
[2020-07-22 14:04] LABS: BASOPHILS ABSOLUTE AUTO 0.11 K/mm3 (0.00-0.23); BASOPHILS PERCENT AUTO 1 % (0-2); EOSINOPHILS ABSOLUTE AUTO 0.17 K/mm3 (0.00-0.68); EOSINOPHILS PERCENT AUTO 1 % (0-6); Hematocrit 38.9 % (37.0-53.0); Hemoglobin 12.7 g/dL (13.5-17.5); IMMATURE GRAN ABSOLUTE AUTO 0.39 K/mm3 (0.00-0.10); IMMATURE GRAN PERCENT AUTO 2 % (0-1); LYMPHOCYTES ABSOLUTE AUTO 3.53 K/mm3 (0.84-5.20); LYMPHOCYTES PERCENT AUTO 15 % (21-46); MONOCYTES ABSOLUTE AUTO 1.22 K/mm3 (0.16-1.47); MONOCYTES PERCENT AUTO 5 % (4-13); Mean Corpuscular HGB Conc 32.6 g/dL (31.5-36.5); Mean Corpuscular Volume 89 fL (80-100); Mean Platelet Volume 9.9 fL (9.1-12.4); NEUTROPHILS ABSOLUTE AUTO 17.86 K/mm3 (1.96-9.15); NEUTROPHILS PERCENT AUTO 77 % (41-73); Platelet Count 283 K/mm3 (150-400); RDW Coefficient Variation 13.8 % (11.7-14.2); Red Blood Cell Count 4.38 M/mm3 (4.30-5.90); White Blood Cell Count 23.28 K/mm3 (4.00-11.30)
[2020-07-22 14:18] LABS: International Normalized Ratio 1.07; Prothrombin Time Results 11.4 Sec (9.7-11.5)
[2020-07-22 14:39] LABS: Influenza A, PCR NEGATIVE (NEGATIVE); Influenza B, PCR NEGATIVE (NEGATIVE); Resp Syncytial Virus, PCR NEGATIVE (NEGATIVE); SARS-Cov-2 (COVID-19) PCR, MMC NEGATIVE (NEGATIVE)
[2020-07-22 14:46] LABS: Blood Urea Nitrogen 20 mg/dL (8-24); Bun/Creatinine Ratio 17.4 (12.0-20.0); CO2, Blood 15 mmol/L (21-32); Calcium, Blood 6.6 mg/dL (8.5-10.1); Chloride, Blood 101 mmol/L (98-108); Creatinine, Blood 1.15 mg/dL (0.60-1.20); Glomerular Filtration Rate >60 (60-); Glucose, Blood 576 mg/dL (70-99); Potassium, Blood 3.4 mmol/L (3.5-5.5)
[2020-07-22 14:47] LABS: Anion Gap 13 mmol/L (6-16)
[2020-07-22 14:48] LABS: Sodium, Blood 129 mmol/L (136-145)
[2020-07-22 15:09] LABS: PCO2 Arterial 32.5 mmHg (35-45); PO2 Arterial 184 mmHg (80-100); pH Blood Arterial 7.16 (7.35-7.45)
--- NOTE | 2020-07-22 15:43 | NUR ---
I was called to ER to assist family when patient arrived to ER via ambulance. I provided a calming presence to family after Dr. Donovan explained the gravity of the situation. I walked family to heart center and got them set up in the waiting rm including providing beverages. I conduct a life review of patient and normalize their experience. I wait with family in the ICU waiting rm. Family remain optimistic but understand how critic the patient is. I will continue to remain available to patient and family.
--- NOTE | 2020-07-22 16:30 | NUR ---
DR MCCORMICK / UPDATE: PROVIDER CALLED TO BEDSIDE BY THIS RN FOR PT's WORSENING BRADYCARDIA W/ HR DOWN TO 32 BPM. AMIO HAS BEEN PLACED ON STANDBY & BEDSIDE ZOLL IN USE W/ "MONITOR" SETTING. DR MCCORMICK HAS CALLED DR CISNEROS WHO IS AGREEABLE TO STOPPING AMIODARONE FOR THIS PT & WILL COME TO BEDSIDE SHORTLY. EKG COMPLETED ORDERED POST-OPERATIVELY.
--- NOTE | 2020-07-22 17:07 | NUR ---
FAMILY PHONE NUMBERS: JESUSITA (DAUGHTER) - AIRAM (DAUGHTER) -
--- NOTE | 2020-07-22 19:00 | NUR ---
ASSUMED CARE ASSUMED CARE OF PATIENT. REMAINS INTUBATED- AC 14, TV 450, PEEP 5, FIO2 30%. RR 20s. NIMBEX GTT AT 0.5MCG/KG/MIN. T04 0/4. SEDATED WITH PROPOFOL AT 20MCG/KG/MIN. BIS 26-35. NO SPONTANEOUS MOVEMENT NOTED. OG TO LIS WITH DARK BROWN DRAINAGE. RADFORD PATENT AND DRAINING CLEAR YELLOW URINE. RIGHT FEMORAL ARTERIAL LINE NOTED. RIGHT FEMORAL COOLING CATHETER/CENTRAL LINE NOTED. COOLING PER PROTOCOL WITH TEMP NOW 96.8F. SEE SHIFT ASSESSMENT FOR FULL ASSESSMENT.
--- NOTE | 2020-07-22 19:42 | NUR ---
ADMISSION / SHIFT SUMMARY: BEDSIDE REPORT RECIEVED FROM BRODY Cummins RN IN HC. PT ARRIVED TO ICU04 AT APPROX 1430. ON ARRIVAL HE IS INTUBATED W/ 8.0 ETT NOTED TO BE 22.0 CM ATG. VENT SETTINGS: AC 14/450/5/70%. OGT IN PLACE, ATTACHED TO LIS W/ SMALL AMNT GASTRIC CONTENTS NOTED IN CANISTER. NEW ZOLL PACER/DEFIB PADS HAVE BEEN PLACED ON THIS PT. EPI DRIP INFUSING AT 10 MCG/MIN & AMIODARONE INFUSING AT 1 MG/MIN. EPI DRIP HAS BEEN QUICKLY TITRATED OFF R/T INCREASING BP & AMIODARONE OFF FOR BRADYCARDIA - SEE PRIOR NOTE. NIMBEX INFUSING PER EMAR, 0/4 FOR TRAIN OF 4 NOTED & PARALYTIC HAS INCREASINGLY BEEN TITRATED DOWN R/T THIS. SEDATION ALSO TITRATED DOWN R/T LOW BIS SCORE W/ IMPROVEMENT NOTED W/ BIS INCREASING FROM 10 TO APPROX 30 THIS EVENING. VENT SETTINGS: AC 14/450/5/45%. MONITOR SHOWS SB-SR W/ HR 50-60s, FREQUENT PVCs, SLIGHT HTN W/ SBP 160s. OGT REMAINS TO LIS. TEMP RADFORD PATENT/ DRAINING W/ READING NOTED ON ZOLL COOLING DEVICE. COOLING CATH & ART LINE IN PLACE TO R FEMORAL. SKIN OVERALL CDI. REPORT HAS BEEN GIVEN NAVA Justice RN TO ASSUME CARE.
[2020-07-22 20:33] LABS: PCO2 Arterial 31.9 mmHg (35-45); PO2 Arterial 93.6 mmHg (80-100); pH Blood Arterial 7.31 (7.35-7.45)
[2020-07-23 02:02] LABS: BASOPHILS ABSOLUTE AUTO 0.05 K/mm3 (0.00-0.23); BASOPHILS PERCENT AUTO 0 % (0-2); EOSINOPHILS ABSOLUTE AUTO 0.01 K/mm3 (0.00-0.68); EOSINOPHILS PERCENT AUTO 0 % (0-6); Hematocrit 37.7 % (37.0-53.0); Hemoglobin 12.7 g/dL (13.5-17.5); IMMATURE GRAN ABSOLUTE AUTO 0.07 K/mm3 (0.00-0.10); IMMATURE GRAN PERCENT AUTO 0 % (0-1); LYMPHOCYTES ABSOLUTE AUTO 1.43 K/mm3 (0.84-5.20); LYMPHOCYTES PERCENT AUTO 8 % (21-46); MONOCYTES ABSOLUTE AUTO 1.51 K/mm3 (0.16-1.47); MONOCYTES PERCENT AUTO 9 % (4-13); Mean Corpuscular HGB 28.5 pg (26.0-34.0); Mean Corpuscular HGB Conc 33.7 g/dL (31.5-36.5); Mean Corpuscular Volume 85 fL (80-100); Mean Platelet Volume 9.7 fL (9.1-12.4); NEUTROPHILS ABSOLUTE AUTO 13.87 K/mm3 (1.96-9.15); NEUTROPHILS PERCENT AUTO 82 % (41-73); Platelet Count 323 K/mm3 (150-400); RDW Coefficient Variation 13.7 % (11.7-14.2); RDW Standard Deviation 42.5 fL (35.1-46.3); Red Blood Cell Count 4.46 M/mm3 (4.30-5.90); White Blood Cell Count 16.94 K/mm3 (4.00-11.30)
[2020-07-23 02:21] LABS: International Normalized Ratio 0.94; Prothrombin Time Results 10.1 Sec (9.7-11.5)
[2020-07-23 02:23] LABS: CHOL/HDL RATIO 3.6; Cholesterol 137 mg/dL (50-200); HDL Cholesterol 38 mg/dL (>39); LDL/HDL RATIO 1.7; Low Density Lipoprotein Chol 65 mg/dL (0-110); Triglycerides 172 mg/dL (30-160); Very Low Density Lipoprot Chol 34 mg/dL (6-32)
[2020-07-23 02:36] LABS: Anion Gap 9 mmol/L (6-16); Blood Urea Nitrogen 25 mg/dL (8-24); Bun/Creatinine Ratio 22.1 (12.0-20.0); CO2, Blood 16 mmol/L (21-32); Calcium, Blood 7.5 mg/dL (8.5-10.1); Chloride, Blood 109 mmol/L (98-108); Creatinine, Blood 1.13 mg/dL (0.60-1.20); Glomerular Filtration Rate >60 (60-); Glucose, Blood 242 mg/dL (70-99); Potassium, Blood 4.9 mmol/L (3.5-5.5); Sodium, Blood 134 mmol/L (136-145)
[2020-07-23 05:18] LABS: PCO2 Arterial 29.8 mmHg (35-45); PO2 Arterial 116 mmHg (80-100); pH Blood Arterial 7.34 (7.35-7.45)
--- NOTE | 2020-07-23 06:05 | NUR ---
SHIFT SUMMARY NO ACUTE CHANGES. REMAINS INTUBATED- AC 14, TV 450, PEEP 5, FIO2 30%. RR 14-LOW 20s T/O NOC. NIMBEX CONTINUES AT 0.5MCG/KG/MIN- TO4 3/4 THIS AM. SEDATED WITH PROPOFOL BETWEEN 20-35MCG/KF/MIN DURING NOC- NOW INFUSING AT 30MCG/KG/MIN. BIS MONITOR CONTINUES BETWEEN 30s-50s MOSTLY. NO SPONTANENOUS MOVEMENT NOTED. NO COUGH OR GAG NOTED. PUPILS 1-2MM, NO REACTION NOTED. OG TO LIS. BLOODY ORAL SECRETIONS CONTINUE. RADFORD PATENT AND DRAINING CLEAR YELLOW URINE. TEMP 96.8-96.9F T/O NOC WITH COOLING CATHETER. RIGHT FEMORAL ARTERIAL LINE AND CENTRAL LINE INTACT, DRSG D/I. WILL REPORT TO ONCOMING RN WHEN AVAILABLE.
--- NOTE | 2020-07-23 08:00 | NUR ---
PT REMAINS INTUBATED, PARALYZED, AND SEDATED. TO4 3/4 WITH PROPOFOL @ 30 MCG/KG/MIN AND NIMBEX @ 0.5 MCG/KG/MIN. BIS TRENDING 40-60. HOWEVER, BIS NOTED TO 80'S WITH NOXIOUS STIMULI AND PT NOTED TO BE BREATHING OVER THE SET VENT RATE OF 14. COOLING CATHETER REMAINS IN PLACE TEMP 96.9-SET @ 96.8. REWARMING TO BEGIN @ 1500. RECHECK LABS @ 1300 PER COOLING PROTOCOL. ECG SHOWS SECOND DEGREE BLOCK- IN AND OUT OF TYPE 1 AND TYPE 2 HB. RATE 30-40'S AT TIMES. METOPROLOL HELD. SBP VIA RIGHT FEMORAL SHASHI TRENDING 120-150'S ZOLL PACER PADS IN PLACE. ETT TO VENT: AC 14, RR 18-22, TV450, PEEP 5, FIO2 30%-SATS>90% ETT AND ORAL SUCTION PRODUCTIVE OF RED, BLOODY SECRETIONS. OGT ALSO NOTED WITH RESIDUAL COFFEE GROUND-LIKE SECRETIONS ADHERED TO OGT AND SUCTION TUBING. MEDS GIVEN VIA OGT AND OGT CLAMPED X 30 MINUTES. RADFORD WITH SMALL AMOUNT OF YELLOW URINE TO UROMETER. SKIN IS PALE AND COOL-NO NOTED SHIVERING AT THIS TIME.
--- NOTE | 2020-07-23 13:00 | NUR ---
NIMBEX DRIP OFF PER DR. MCCORMICK ORDER. WILL BEGIN REWARMING @ 1500.
[2020-07-23 13:27] LABS: BASOPHILS ABSOLUTE AUTO 0.03 K/mm3 (0.00-0.23); BASOPHILS PERCENT AUTO 0 % (0-2); EOSINOPHILS ABSOLUTE AUTO 0.01 K/mm3 (0.00-0.68); EOSINOPHILS PERCENT AUTO 0 % (0-6); Hematocrit 38.2 % (37.0-53.0); Hemoglobin 12.7 g/dL (13.5-17.5); IMMATURE GRAN ABSOLUTE AUTO 0.11 K/mm3 (0.00-0.10); IMMATURE GRAN PERCENT AUTO 1 % (0-1); LYMPHOCYTES ABSOLUTE AUTO 1.48 K/mm3 (0.84-5.20); LYMPHOCYTES PERCENT AUTO 9 % (21-46); MONOCYTES ABSOLUTE AUTO 1.26 K/mm3 (0.16-1.47); MONOCYTES PERCENT AUTO 8 % (4-13); Mean Corpuscular HGB 28.7 pg (26.0-34.0); Mean Corpuscular HGB Conc 33.2 g/dL (31.5-36.5); Mean Corpuscular Volume 86 fL (80-100); Mean Platelet Volume 10.3 fL (9.1-12.4); NEUTROPHILS ABSOLUTE AUTO 13.88 K/mm3 (1.96-9.15); NEUTROPHILS PERCENT AUTO 83 % (41-73); Platelet Count 285 K/mm3 (150-400); RDW Standard Deviation 44.7 fL (35.1-46.3); Red Blood Cell Count 4.42 M/mm3 (4.30-5.90); White Blood Cell Count 16.77 K/mm3 (4.00-11.30)
[2020-07-23 13:37] LABS: International Normalized Ratio 0.91; Prothrombin Time Results 9.8 Sec (9.7-11.5)
[2020-07-23 14:15] LABS: Anion Gap 8 mmol/L (6-16); Blood Urea Nitrogen 26 mg/dL (8-24); CO2, Blood 20 mmol/L (21-32); Calcium, Blood 8.1 mg/dL (8.5-10.1); Chloride, Blood 107 mmol/L (98-108); Creatinine, Blood 1.24 mg/dL (0.60-1.20); Glomerular Filtration Rate >60 (60-); Glucose, Blood 153 mg/dL (70-99); Potassium, Blood 4.8 mmol/L (3.5-5.5); Sodium, Blood 135 mmol/L (136-145)
--- NOTE | 2020-07-23 15:00 | NUR ---
REWARMING PROCESS INITIATED. GOAL TEMP SET FOR 97.8. NIMBEX HAS BEEN OFF SINCE 1300-PROPOFOL DRIP PLACED ON STANDBY. PT BROTHER IS AT BEDSIDE-UPDATED TO CURRENT STATUS. PT BROTHER STATES "HE WOULD NOT WANT TO BE ON A BREATHING MACHINE OR ANY LIFE SUPPORT." PT DAUGHTER JESUSITA IS LISTED POA FOR HEALTH CARE. ACCORDING TO THE BROTHER, THE FAMILY WILL HAVE A DISCUSSION ABOUT CODE STATUS LATER TODAY.
--- NOTE | 2020-07-23 15:15 | NUR ---
PT OFF SEDATION FOR 15 MINUTES NOW. NO PURPOSEFUL MOVEMENT NOTED. PT NOT FOLLOWING COMMANDS. CORNEAL REFLEX NOTED, PT CHEWING ON ETT, COUGHING, AND SWALLOWING NOTED. SBP TRENDING 190'S. DR. MCCORMICK UPDATED.
--- NOTE | 2020-07-23 16:01 | NUR ---
PT REMAINS OFF SEDATION. PT GRIMACING, COUGHING, HIGH PRESSURE ALARM ON VENT. RR 40'S AND PT UTILIZING ACCESSORY MUSCLE AND ABDOMEN TO BREATHE. MED WITH FENTANYL 50 MCG IVP X1. SBP 130'S AFTER MED WITH HYDRALAZINE-SEE EMAR. ECG CONTINUES SECOND DEGREE HB-IN AND OUT OF TYPE 1 AND TYPE 2. TARGET TEMP 97.8-TEMP CURRENTLY 98.0.
--- NOTE | 2020-07-23 16:18 | NUR ---
PT OPENED EYES SPONTANEOUSLY, BUT NOT TRACKING. WITHDRAWL POSTURING NOTED TO UPPER EXTREMITIES. RR 36. SATS 98% ON FIO2 30%
--- NOTE | 2020-07-23 16:35 | NUR ---
SBP TRENDING 170'S DESPITE MED WITH HYDRALAZINE. RR UPPER 30'S TO 40'S. PT CONTINUES TO UTILIZES ACCESSORY MUSCLES AND ABODOMEN TO BREATH. DR. MCCORMICK AWARE. PROPOFOL RESUMED @ 30 MCG/KG/MIN. CT OF HEAD TO BE DONE IN AM.
--- NOTE | 2020-07-23 16:50 | NUR ---
RR RATE CONTINUES 40'S DESPITE RESUMING PROPOFOL-PT USING ACCESSORY MUSCLES TO BREATHE. MED WITH ATIVAN 1 MG IVP X 1.
--- NOTE | 2020-07-23 18:30 | NUR ---
PT REMAINS INTUBATED, SEDATED ON PROPOFOL @ 40MCG/KG/MIN.RR 20'S AND PT NOT USING ACCESSORY MUSCLES TO BREATHE AT THIS TIME. SOFT WRIST RESTRAINTS IN PLACE TO PREVENT ACCIDENTAL EXTUBATION. ARTERIAL WAVEFORM SUDDENLY ABSENT. RIGHT FEMORAL SITE WITH OLD BLOOD AND CLOTS TO DRESSING. DRESSING CHANGE COMPLETED. TUBING CHANGED AND SAFE-SET PLACED. ARTERIAL WAVEFORM RESTORED.
--- NOTE | 2020-07-23 19:00 | NUR ---
ASSUMED CARE ASSUMED CARE OF PATIENT. REMAINS INTUBATED- AC 14, TV 450, PEEP 5, FIO2 30%. RR 20s. SLIGHT USE OF ACCESSORY MUSCLES NOTED. SEDATED WITH PROPOFOL AT 40MCG/KG/MIN. BILATERAL SOFT WRIST RESTRAINTS IN PLACE TO PROTECT TUBES AND LINES. HR 40s-70s, SECOND DEGREE HEART BLOCK. ZOLL AT BEDSIDE. BP STABLE. REWARMING IN PROGRESS WITH TEMP 97.8F AT THIS TIME. A-LINE NOTED TO RIGHT FEMORAL. OG TO LIS WITH SMALL AMOUNT OF DARK REDDISH/BROWN DRAINAGE. RADFORD PATENT AND DRAINING. SEE SHIFT ASSESSMENT FOR FULL ASSESSMENT.
[2020-07-24 03:58] LABS: Hematocrit 31.7 % (37.0-53.0); Mean Corpuscular HGB Conc 34.7 g/dL (31.5-36.5); Mean Corpuscular Volume 84 fL (80-100); Mean Platelet Volume 10.3 fL (9.1-12.4); Platelet Count 237 K/mm3 (150-400); RDW Coefficient Variation 14.1 % (11.7-14.2); RDW Standard Deviation 43.5 fL (35.1-46.3); Red Blood Cell Count 3.79 M/mm3 (4.30-5.90); White Blood Cell Count 15.89 K/mm3 (4.00-11.30)
[2020-07-24 04:33] LABS: Anion Gap 8 mmol/L (6-16); Blood Urea Nitrogen 30 mg/dL (8-24); Bun/Creatinine Ratio 24.4 (12.0-20.0); CO2, Blood 18 mmol/L (21-32); Calcium, Blood 7.8 mg/dL (8.5-10.1); Chloride, Blood 109 mmol/L (98-108); Creatinine, Blood 1.23 mg/dL (0.60-1.20); Glomerular Filtration Rate >60 (60-); Glucose, Blood 133 mg/dL (70-99); Potassium, Blood 4.5 mmol/L (3.5-5.5); Sodium, Blood 135 mmol/L (136-145)
[2020-07-24 04:48] LABS: PCO2 Arterial 31.9 mmHg (35-45); PO2 Arterial 110 mmHg (80-100); pH Blood Arterial 7.35 (7.35-7.45)
--- NOTE | 2020-07-24 06:35 | NUR ---
SHIFT SUMMARY NO ACUTE CHANGES DURING NOC. REMAINS INTUBATED. SEDATED WITH PROPOFOL BETWEEN 30-40MCG/KG/MIN- NOW INFUSING AT 30MCG/KG/MIN. NO CHANGE IN NEURO STATUS. PT CONTINUES TO WITHDRAW BLE TO NOXIOUS STIMULI. NO RESPONSE IN UPPER EXTREMITIES OTHER THAN ONE EPISODE OF WHAT APPEARED TO BE DECEREBRATE POSTURING. PUPILS NON-REACTIVE. BP STABLE. ONE EPISODE OF BRADYCARDIA, RATE 30s WITH TURNING/REPOSITIONING. OTHERWISE MONITOR SHOWS SECOND DEGREE HEART BLOCK. TEMPERATURE REMAINED 97.8-97.9F T/O NOC. OG TO LIS. RADFORD PATENT AND DRAINING TO GRAVITY. A-LINE PATENT, ZEROED. TO CT THIS AM FOR HEAD CT. WILL REPORT TO ONCOMING RN.
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
--- NOTE | 2020-07-24 12:00 | NUR ---
DECEREBRATE POSTURING TO UPPER EXTREMITIES NOTED WITH NOXIOUS STIMULI. NO OTHER NEURO CHANGES. ECG CONTINUES SECOND DEGREE HB TYPE 2-RATE TO 30'S AT TIMES. ZOLL PADS REMAIN IN PLACE. DR. MCCORMICK HAS REVIEWED THE CT/HEAD RESULTS. PROGNOSIS GRIM. WILL ARRANGE FOR FAMILY TO MEET WITH DR. MCCORMICK WHEN THEY ARRIVE TODAY. PALLIATIVE CARE HAS BEEN CONSULTED.
--- NOTE | 2020-07-24 14:00 | NUR ---
PT DAUGHTER NICO HERE FOR VISIT. DR. MCCORMICK GREETED HER AT THE BEDSIDE. JOYCE FROM SPIRITUAL CARE AND RICHARDSON FROM PALLIATIVE CARE ALSO PRESENT. THE REST OF THE FAMILY IS TO ARRIVE SHORTLY AND DR. MCCORMICK WILL MEET WITH ALL OF THEM AT THAT TIME. MARTHA PT SIGNIFICANT OTHER HAS BEEN NOTIFIED OF THE PLAN TO MEET AND DISCUSS PROGNOSIS AND PLAN OF CARE. MARTHA NOTIFIED PER NICO REQUEST. MARTHA STATES THAT SHE DOES NOT WANT TO HEAR THE RESULTS OF THE CT SCAN SHE STATES "I ALREADY KNOW THE RESULTS. HE HERE AT HOME 2 DAYS AGO."
--- NOTE | 2020-07-24 14:33 | NUR ---
Returned to ICU to attend Dr/family meeting. Ann present asks that Dr wait for other siblings to arrive. She also gave permission for us to update pt's SO, Louise and invite her to family conference. RN spoke to Louise and she declined to come in. She stated, "I was with him when he ". Plan for RN to call me when other children arrive for MD/family conversation and discussing plan/goal of care. Ann verbalized understanding of poor prognosis. [place] from [place]. Encouraged self care and hydration and brought her water. Chaplain Stephens had been at bedside before we came in. I excused myself to allow their visit to continue.
--- NOTE | 2020-07-24 14:35 | NUR ---
Spiritual care visit conducted. Patient's daughter Amelia is bedside. She talks about patient's life and some of the family dynamics. She tells me about his belief in God and his on and off belief in the Bible. She tells me about how the patient lived his life to experience everything he possible could. She talks about his many near experiences and how he would, against the odds, rally and come out ok. She talks about her emotional ups and downs as she tries to process all that is happening. I conduct a life review, normalize her experience and provide a calming presence. I will continue to remain available to patient's family.
--- NOTE | 2020-07-24 16:00 | NUR ---
PT WITHDRAWL POSTURING TO UPPER AND LOWER EXTREMITIES WITH ORAL CARE. PT GRIMACING-MED WITH FENTANYL 50 MCG IVP X 1 AND REPOSITIONED IN SEMI-GARCIA'S POSITION. PLAN IS TO WITHDRAW CARE AT 1700. NUMEROUS FAMILY MEMBERS AND FRIENDS HAVE BEEN IN TO SEE PT.
--- NOTE | 2020-07-24 16:37 | NUR ---
Returned to ICU. Update obtained from RN. Spoke with Amelia may, who states she and siblings have decided to withdraw life support after talking with Dr Mercer. Multiple family members have been in to say good-bye. One close friend still planning to come in before pt is extubated. Discussed comfort care and medicating for comfort prior to extubation. Reviewed plan of care with RN also.
--- NOTE | 2020-07-24 17:00 | NUR ---
RESTRAINTS REMOVED @ 1657. PT EXTUBATED AND MADE COMFORT CARE STATUS @ 1700. RR 36- 48. COPIOUS, ZAMAN ORAL SECRETIONS. ECG CONTINUES SECOND DEGREE HEART BLOCK, TYPE 2. MULTIPLE FAMILY MEMBERS AND FRIENDS SUMMONED TO THE BEDSIDE IMMEDIATELY AFTER EXTUBATION.
--- NOTE | 2020-07-25 04:55 | NUR ---
70 YR OLD MALE TRANSFERRED TO FLOOR FROM THE ICU ON COMFORT CARE POST STEMI. DAUGHTER ARRIVED WITH PT. PT UNRESPONSIVE. REPOSITIONED FOR COMFORT. RADFORD DRAINING. CALL LIGHT IN REACH OF DAUGHTER,
--- NOTE | 2020-07-25 05:17 | NUR ---
RESTING QUIETLY, REPOSITIONED. NO NOTED S/S ACUTE PAIN. RADFORD DRAINING. CALL LIGHT IN REACH OF DAUGHTER AT BEDSIDE.
--- NOTE | 2020-07-25 06:33 | NUR ---
SHIFT SUMMARY PT TRANSFERRED TO FLOOR FROM ICU, ON COMFORT CARE. RESTING QUIETLY WITH DAUGHTER AT BEDSIDE. NO NOTED ACUTE S/S PAIN. SIGNIFICANT OTHER CALLED DURING SHIFT FOR PT STATUS. SHE STATED SHE WOULD CONTINUE TO CALL BACK FOR UPDATES, DAUGHTER AGREED. CALL LIGHT IN DAUGHTERS REACH. PRABHAKAR FREEMAN.
--- NOTE | 2020-07-25 06:53 | NUR ---
RESTING QUIETLY. DAUGHTER AT BEDSIDE, CALL LIGHT INR EACH OF DAUGHTER
--- NOTE | 2020-07-25 09:30 | NUR ---
Pal Care Comfort care visit - Called to room by automotive buyer, who wanted me to speak with pt's Friend/roommate due to friend requesting pt be shipped north and IV fluids administered. When I arrived Friend, Jose, at bedside. Ann Cisneros also present and ann Kaba arrived later. I reviewed, with ann's permission, pt's medical condition, anoxic brain injury, reason for no IV fluids and goals of comfort care. Jose appears to have little insight and low medical literacy. He may be cognitively impaired also. Ann verbalized understanding and confirmation of comfort as goals of care. I educated on nonverbal indicators of pain/restlessness to report to staff, medications for comfort and secretions, s/s they may see as pt progresses in dying process. Pt has audible upper airway secretions. I did not find any comfort care order set had been entered. I updated RN on my visit and asked for help to reposition pt to left side and requested scopolomine patch be applied when it became available per eMAR. Called Dr with request for comfort care order set. VO obtained and entered as appropriate for pt on comfort care, who is unconscious and unable to swallow. Returned to room to update Family on plan. Gave them booklet, "the eleventh hour" to review and share with family so they would not be alarmed as pt's s/s change as he becomes more active in dying. [facility] Care to cont to follow.
--- NOTE | 2020-07-25 16:27 | NUR ---
PT HAS BEEN NONRESPONDANT TODAY. REQUIRED PAIN MED ONCE EARLIER THIS SHIFT. FAMILY AT BEDSIDE. PT TURNED REGULARLY, IN TO SEE PT. NO NEW ORDERS. PT RESTING WITH RESP ABOUT 20 AT THIS TIME . OCCATIONAL YAWN. OTHERWISE IS RESTING. BED IN LOW POSITION, CALL LITE IN REACH, BED ALARN ON FOR SAFETY.
--- NOTE | 2020-07-25 16:46 | NUR ---
Patient moved to medical floor after extubation in ICU 07/14/20. [facility] PCP requested to manage comfort care. Being seen by DR Zelaya 07/25 07/26 07/27 Dr Montes starting 07/28/20 Family at bedside. carlos
--- NOTE | 2020-07-25 16:46 | NUR ---
Pal Care follow up supportive visit. Pt's room full of family visitors talking softly around him. Case conferenced with pt's RN for update and plan of care. Pt appears with s/s well managed and family present, supporting each other.
--- NOTE | 2020-07-25 21:01 | NUR ---
1935 PT ON COMFORT CARE MEASURES; ROXANOL 20MG SL GIVEN FOR RESTLESSNESS; PTS SON TRISTON AT SIDE AND SUPORTIVE.
--- NOTE | 2020-07-26 03:49 | NUR ---
SHIFT SUMMARY: 70 Y/O MALE ON COMFORT CARE MEASURES; UNRESPONSIVE VERBAL OR PAINFUL STIMULI; PTS ENTIRE FAMILY AT SIDE; BED LOW POSITION WITH CALL LIGHT AT SIDE.
--- NOTE | 2020-07-26 09:19 | NUR ---
PT DEPARTED WITH [facility]
== END 2020-07-26 05:15 | DRG 247 ==
LOC: ER 11:39 → ICUW 12:26 → ICUE 12:26 → MEDS 07-25 04:40
PROVIDERS: Emergency Medicine; Internal Medicine Critical Care Medicine; ADMIT Emergency Medicine
PROC: 4A023N7 Measurement of Cardiac Sampling and Pressure, Left Heart, Percutaneous Approach (ICD-10-PCS; principal; 2020-07-22)
PROC: 027034Z Dilation of Coronary Artery, One Artery with Drug-eluting Intraluminal Device, Percutaneous Approach (ICD-10-PCS; 2020-07-22)
PROC: B2111ZZ Fluoroscopy of Multiple Coronary Arteries using Low Osmolar Contrast (ICD-10-PCS; 2020-07-22)
PROC: 06HM33Z Insertion of Infusion Device into Right Femoral Vein, Percutaneous Approach (ICD-10-PCS; 2020-07-22)
PROC: 5A1945Z Respiratory Ventilation, 24-96 Consecutive Hours (ICD-10-PCS; 2020-07-22)
PROC: 0BH17EZ Insertion of Endotracheal Airway into Trachea, Via Natural or Artificial Opening (ICD-10-PCS; 2020-07-22)
DX: I21.09 ST elevation (STEMI) myocardial infarction involving other coronary artery of anterior wall (principal); G93.1 Anoxic brain damage, not elsewhere classified; I25.10 Atherosclerotic heart disease of native coronary artery without angina pectoris; Z20.822 Contact with and (suspected) exposure to COVID-19; I46.2 Cardiac arrest due to underlying cardiac condition; R57.0 Cardiogenic shock; I10 Essential (primary) hypertension; G40.909 Epilepsy, unspecified, not intractable, without status epilepticus; Z51.5 Encounter for palliative care; E87.6 Hypokalemia; E78.00 Pure hypercholesterolemia, unspecified; E11.40 Type 2 diabetes mellitus with diabetic neuropathy, unspecified; Z66 Do not resuscitate; Z85.820 Personal history of malignant melanoma of skin; Z79.899 Other long term (current) drug therapy; Z79.84 Long term (current) use of oral hypoglycemic drugs; Z78.1 Physical restraint status
CPT/HCPCS: 0241U; 36011; 36415; 36556; 51702; 70450; 71045; 76937; 80047; 80048; 80053; 80061; 82330; 82550; 82553; 82803; 82947; 83735; 83880; 84484; 85014; 85025; 85027; 85347; 85379; 85610; 87070; 87077; 87186; 87205; 93005; 93010; 93454; 94002; 94003; 96365-59; 96375-59; 96376; 96376-59; 99152; 99153; 99285-25; A9270; C1725; C1769; C1874; C1887; C8923; C9606; J0171; J0282; J0330; J0360; J0610; J1644; J1815; J1953; J2060; J2250; J2704; J3010; J3246; J3480; J7030; J7040; J7050; J7060; Q9967